=== PATIENT | male | born 1990 | race Caucasian/White ===

== ENCOUNTER 2017-09-08 20:54 | Emergency (ER) | payer SELFPAY ==
[~2017-09-08] VITALS: Ht 177.8 cm; Wt 60.0 kg
[~2017-09-08 20:54] MED LIST: IBUP-232 PO; Z.0.NO CURRENT MEDS
[2017-09-08 20:55] VITALS: BP 144/85; PULSE 129; RESP 18; TEMP 98.8; O2SAT 96
[2017-09-08] MEDS ORDERED: CITA20TA4 PO (21:39)
[2017-09-08] MEDS ORDERED: TRAZ50TA12 PO (21:39)
[2017-09-08] MEDS ORDERED: OMEP20TA93 PO (21:39)
== END 2017-09-08 23:05 | disposition left against medical advice (07) ==
LOC: NED 20:54
DX: R68.89 Other general symptoms and signs (principal); Z53.21 Procedure and treatment not carried out due to patient leaving prior to being seen by health care provider
CPT/HCPCS: 99281